=== PATIENT | female | born 1965 | race Caucasian/White ===

== ENCOUNTER → 2019-04-20 | Outpatient (CLI) | payer BC ==
--- NOTE | 2019-04-20 11:27 | Diagnostic Imaging Report ---
PROCEDURE: US Non-ob pelvis comp/trans. TECHNIQUE: Multiple realtime grayscale images were obtained of the pelvis in various projections endovaginally. Transabdominal imaging was also performed. INDICATION: Postmenopausal bleeding. COMPARISON: There are no prior studies available for comparison. FINDINGS: The uterus is not enlarged measuring 7.4 x 4.6 x 3.5 cm. The endometrial lining is not thickened measuring 5-6 mm. There is no focal mass involving the uterus to suggest a fibroid. However there is a small calcification in the uterine fundus just to the right of midline. This could be related to a minute calcified fibroid. The images of the cervix do show that there is a 2.5 x 1.7 x 3.0 cm soft tissue density within the cervix. This finding is worrisome for malignancy. Direct visualization would be recommended. Both ovaries were identified. There is a 2.4 x 3.1 x 1.6 cm benign-appearing cyst associated with the right ovary. The left ovary is generally unremarkable. There is no solid pelvic mass or free fluid collection evident. IMPRESSION: 1. The 2.5 x 1.7 x 3.0 cm mass-like lesion within the cervix is worrisome for malignancy. Direct visualization would be recommended. 2. There may be a small calcified fibroid within the uterus. 3. There is a benign-appearing roughly 3 cm cyst associated with the right ovary. Dictated by: Dictated on workstation # [id number]
== END ==
LOC: RAD 09:34
PROVIDERS: ATTEND Nurse Practitioner
DX: N88.8 Other specified noninflammatory disorders of cervix uteri (principal); N95.0 Postmenopausal bleeding
CPT/HCPCS: 76830; 76856